=== PATIENT | female | born 1945 | race Caucasian/White ===

== ENCOUNTER 2017-10-17 13:45 | Observation (INO) ==
--- NOTE | 2017-10-17 14:42 | Emergency Department Note ---
Disposition Clinical Impression: Intractable pain, Mass of gallbladder, Cholelithiases, Liver mass, Lymph node enlargement Disposition: Admitted As Inpatient Condition: Fair General Adult HPI - General Chief complaint: ED Abdominal Pain Stated complaint: "abd pain, possible kidney stone" Time Seen by Provider: 10/17/17 14:31 Source: patient Limitations: no limitations - History of Present Illness Pain Scale: 8 - Related Data Home Medications Medication Instructions Recorded Confirmed ALPRAZolam [Xanax 0.5 MG Tablet] 0.5 mg PO TID 11/01/15 10/17/17 Citalopram [CeleXA] 60 mg PO HS 11/01/15 10/17/17 Aspirin Enteric Coated [Aspirin EC] 81 mg PO DAILY 10/17/17 10/17/17 Lisinopril [Zestril] 10 mg PO BID 10/17/17 10/17/17 [place]-3/Dha/Epa/Fish Oil [Fish Oil 1 cap PO DAILY 10/17/17 10/17/17 1,000 mg Softgel] Omeprazole [PriLOSEC] 20 mg PO DAILY 10/17/17 10/17/17 Allergies Allergy/AdvReac Type Severity Reaction Status Date / Time cephalexin Allergy Hives Verified 11/01/15 16:49 Penicillins Allergy Hives Verified 11/01/15 16:49 Sulfa (Sulfonamide Allergy Hives Verified 11/01/15 16:49 Antibiotics) Past Medical History - Past Medical History Medical history: Reports: hyperlipidemia, hypertension Surgical history: Reports: hysterectomy, other (tonsillectomy) Psychiatric history: Reports: anxiety, depression, PTSD - Social History Smoking Status: Never smoker Smokeless Tobacco Status: No Alcohol use: Reports: none Drug use: Reports: none Physical Exam - General Limitations: no limitations General appearance: alert, in no apparent distress Course Vital Signs Temperature 97.6 F 10/17/17 13:56 Pulse Rate 82 10/17/17 13:56 Respiratory Rate 18 10/17/17 13:56 Blood Pressure 136/80 10/17/17 13:56 O2 Sat by Pulse Oximetry 98 10/17/17 13:56 Temperature 98.8 F 10/18/17 10:38 Pulse Rate 82 10/18/17 10:38 Respiratory Rate 16 10/18/17 10:38 Blood Pressure 121/70 10/18/17 10:38 O2 Sat by Pulse Oximetry 93 10/18/17 10:38 Oxygen Delivery Oxygen Delivery Room Air Medical Decision Making - Lab Data Result diagrams: 10/18/17 06:58 10/18/17 06:58 Lab Results 10/17/17 10/17/17 Range/Units 14:43 14:43 WBC 10.2 (4.3-11.1) K/mcL RBC 4.46 (3.82-4.97) M/mcL Hgb 12.5 (11.5-15.4) g/dL Hct 37.6 (35.3-44.9) % MCV 84.3 (83.0-100.0) fL MCH 28.0 (28.0-33.3) pg MCHC 33.2 (31.6-35.5) g/dL RDW 13.3 (11.5-14.5) % Plt Count 286 (140-400) K/mcL MPV 9.6 (9.4-12.4) fL Immature Gran % 0.3 (0-4) % Seg Neutrophils % 62.7 % Lymphocytes % 25.3 % Monocytes % 9.7 % Eosinophils % 1.4 % Basophils % 0.6 % Neutrophils # 6.4 (1.6-8.9) K/mcL Lymphocytes # 2.6 (0.6-4.6) K/mcL Monocytes # 1.0 (0.0-1.3) K/mcL Eosinophils # 0.1 (0.0-0.6) K/mcL Basophils # 0.1 (0.0-0.2) K/mcL Sodium 137 (136-145) mEq/L Potassium 3.3 L (3.5-5.1) mEq/L Chloride 104 (98-107) mEq/L Carbon Dioxide 25 (23-29) mEq/L BUN 14 (8-23) mg/dL Creatinine 0.81 (0.60-1.20) mg/dL Est GFR ( Amer) > 60 (> 60) Est GFR (Non-Af Amer) > 60 (> 60) BUN/Creatinine Ratio 17 (6-26) Glucose 108 H (70-105) mg/dL Calculated Osmolality 285 (280-300) Calcium 9.2 (8.6-10.3) mg/dL Total Bilirubin 0.4 (0.3-1.0) mg/dL Direct Bilirubin 0.2 (0.0-0.2) mg/dL Indirect Bilirubin 0.2 (0.0-1.2) mg/dL AST 15 (13-39) Units/L ALT 20 (7-52) Units/L Alkaline Phosphatase 133 H (34-104) Units/L Serum Total Protein 6.5 (6.4-8.9) g/dL Albumin 3.8 (3.5-5.7) g/dL Globulin 2.7 (2.4-3.5) g/dL Albumin/Globulin Ratio 1.4 (1.1-2.2) Amylase 33 (29-103) Units/L Lipase 48 (11-82) Units/L Attestation Statement - Attestation Attestation: I examined this patient and my medical decision-making was reviewed with the Resident Physician. I agree with the documented findings, disposition and treatment plan as described except to the extent set forth below. [id number] time provided Patient was able to ambulate to the bathroom. She appears in no acute distress on exam. Family at bedside. She was evaluated in conjunction with the resident physician Dr. Jones. c/o central "stabbing" abd pain x 3 weeks
[2017-10-17 14:53] LABS: Basophils # 0.1 K/mcL (0.0-0.2); Basophils % 0.6 %; Eosinophils # 0.1 K/mcL (0.0-0.6); Eosinophils % 1.4 %; Hematocrit 37.6 % (35.3-44.9); Hemoglobin 12.5 g/dL (11.5-15.4); Immature Granulocytes % 0.3 % (0-4); Lymphocytes # 2.6 K/mcL (0.6-4.6); Lymphocytes % 25.3 %; Mean Corpuscular HGB Conc 33.2 g/dL (31.6-35.5); Mean Corpuscular Volume 84.3 fL (83.0-100.0); Mean Platelet Volume 9.6 fL (9.4-12.4); Monocytes % 9.7 %; Neutrophils # 6.4 K/mcL (1.6-8.9); Platelet Count 286 K/mcL (140-400); Red Blood Count 4.46 M/mcL (3.82-4.97); Red Cell Distribution Width 13.3 % (11.5-14.5); Segmented Neutrophils % 62.7 %
--- NOTE | 2017-10-17 14:53 | Emergency Department Note ---
Disposition Clinical Impression: Intractable pain, Mass of gallbladder, Liver mass, Lymph node enlargement Cholelithiases Qualifiers: Cholelithiasis location: gallbladder Cholecystitis presence: without cholecystitis Biliary obstruction: without biliary obstruction Qualified Code(s) : K80.20 - Calculus of gallbladder without cholecystitis without obstruction Disposition: Admitted As Inpatient Condition: Fair Forms: ED Satisfaction Letter, Work/School Release Time of Disposition: 16:39 Abdominal Pain HPI - General Chief Complaint: ED Abdominal Pain Stated Complaint: "abd pain, possible kidney stone" Time Seen by Provider: 10/17/17 14:31 Source: patient Nursing Notes Reviewed: Yes Vital Signs Reviewed: Yes - History of Present Illness HPI Narrative: 72-year-old female presents from home with daughter bedside for evaluation of abdominal pain. Onset approximately 3 weeks ago. Intermittent. Begins as suprapubic/midline sharp stabbing which radiates bilaterally to the flanks. Asymptomatic between episodes. Abrupt onset and lasts approximately 30 seconds before abrupt resolution. She has been seen and evaluated by her primary care physician and was prescribed a low-dose muscle relaxant which does help her symptoms. Patient does not like to take this medication because it puts her to sleep. Abdominal surgical history: Total hysterectomy with bilateral oophorectomy PMH: Hyperlipidemia, hypertension, history of TIA ROS: Positive: As above Negative: Saddle anesthesia, pain/burning/urgency/hesitancy with urination, hematochezia, melena, midline back pain, trauma, fever, chills, nausea, vomiting , chest pain, palpitations, dyspnea, diaphoresis Pain Scale: 8 - Related Data Home Medications Medication Instructions Recorded Confirmed ALPRAZolam [Xanax 0.5 MG Tablet] 0.5 mg PO BID 11/01/15 11/01/15 Citalopram [CeleXA] 60 mg PO HS 11/01/15 11/01/15 Aspirin Enteric Coated [Aspirin EC] 81 mg PO DAILY 10/17/17 10/17/17 Lisinopril [Zestril] 10 mg PO BID 10/17/17 10/17/17 [place]-3/Dha/Epa/Fish Oil [Fish Oil 1 cap PO DAILY 10/17/17 10/17/17 1,000 mg Softgel] Omeprazole [PriLOSEC] 20 mg PO DAILY 10/17/17 10/17/17 Allergies Allergy/AdvReac Type Severity Reaction Status Date / Time cephalexin Allergy Hives Verified 11/01/15 16:49 Penicillins Allergy Hives Verified 11/01/15 16:49 Sulfa (Sulfonamide Allergy Hives Verified 11/01/15 16:49 Antibiotics) All systems ED: reviewed and negative except as stated. Review of Systems: As Per HPI Abdominal Pain PMH - Past Medical History Medical history: Reports: hyperlipidemia, hypertension Female Surgical History: Reports: hysterectomy Psychiatric history: Reports: anxiety, depression, PTSD - Social History Smoking status: Never smoker Alcohol use: Reports: none Drug use: Reports: none Physical Exam Vital Signs Reviewed General: Patient is alert, oriented, and in no acute distress. Head: atraumatic, normocephalic Eye: normal appearance, no scleral icterus, no conjunctival injection ENT: mucous membranes moist, normal external ear exam Neck: normal inspection, trachea midline, full ROM Chest: normal inspection, symmetric chest rise Respiratory: Good respiratory effort. Bilateral breath sounds are clear without wheezing, crackles, or rhonchi. Cardiovascular: Regular rate and rhythm. No clicks, rubs, gallops, or murmors. Normal heart sounds. Abdomen: Bowel sounds present normoactive x-4 quadrants. Abdomen is soft, nondistended, and diffusely nontender. No guarding. Mild rebound. No organomegaly noted. Musculoskeletal: Spontaneously moving all extremities. Skin: warm, dry, intact. Neuro: Alert and oriented x4. Sensation light touch intact. Psych: Patient's affect is appropriate for situation. - General Limitations: no limitations General appearance: alert, in no apparent distress Course Course Narrative: During my valuation, patient had an episode of her abdominal cramping. She was wincing, appearing comfortable, moaning. During her symptoms, I palpated her abdomen did not appreciate any musculoskeletal cramping. Serum hematology is unremarkable. Serum chemistries unremarkable except for elevated alkaline phosphatase 133. CT abdomen pelvis shows multiple concerning findings per radiology read. I discussed the above with the patient and her daughter. We discussed in detail the radiology findings and my concern. We also discussed my inability to control the patient's pain without using IV analgesics. They are agreeable to admission for continued pain management. I also discussed the patient with the on-call oncologist. I discussed the concerning CT findings and they are agreeable to consult with admission to the hospitalist. I discussed the patient with the admitting hospitalist, Dr. Burk, who agrees to accept the patient for intractable pain. Abdomen/Pelvis CT 10/17/17 14:43 IMPRESSION: 1. Complete filling of the gallbladder lumen with gallstones. A mass arises from the posterior gallbladder wall primarily near the fundus, most likely representing adenocarcinoma. The mass abuts the gallbladder fossa, and direct invasion of the liver is not excluded. 2. Hepatic metastases measuring up to 4.0 cm x 3.5 cm. 3. Peritoneal carcinomatosis, including extensive omental caking. 4. Pericholecystic stranding could be related to superimposed acute cholecystitis. However, the appearance is felt more likely related to omental carcinomatosis. 5. Mildly enlarged portocaval lymph node, potentially metastatic. 6. Trace bilateral pleural effusions. Pleural metastatic involvement is not excluded. D/ / Yan Bui MD / Yan Bui MD Interpreting Provider: Yan Bui MD Vital Signs Temperature 97.6 F 10/17/17 13:56 Pulse Rate 82 10/17/17 13:56 Respiratory Rate 18 10/17/17 13:56 Blood Pressure 136/80 10/17/17 13:56 O2 Sat by Pulse Oximetry 98 10/17/17 13:56 Temperature 97.6 F 10/17/17 13:56 Pulse Rate 72 10/17/17 15:08 Respiratory Rate 18 10/17/17 15:08 Blood Pressure 149/80 10/17/17 15:08 O2 Sat by Pulse Oximetry 97 10/17/17 15:08 Oxygen Delivery Oxygen Delivery Room Air Abdominal Pain - Lab Data Result diagrams: 10/17/17 14:43 10/17/17 14:43 Lab Results 10/17/17 10/17/17 Range/Units 14:43 14:43 WBC 10.2 (4.3-11.1) K/mcL RBC 4.46 (3.82-4.97) M/mcL Hgb 12.5 (11.5-15.4) g/dL Hct 37.6 (35.3-44.9) % MCV 84.3 (83.0-100.0) fL MCH 28.0 (28.0-33.3) pg MCHC 33.2 (31.6-35.5) g/dL RDW 13.3 (11.5-14.5) % Plt Count 286 (140-400) K/mcL MPV 9.6 (9.4-12.4) fL Immature Gran % 0.3 (0-4) % Seg Neutrophils % 62.7 % Lymphocytes % 25.3 % Monocytes % 9.7 % Eosinophils % 1.4 % Basophils % 0.6 % Neutrophils # 6.4 (1.6-8.9) K/mcL Lymphocytes # 2.6 (0.6-4.6) K/mcL Monocytes # 1.0 (0.0-1.3) K/mcL Eosinophils # 0.1 (0.0-0.6) K/mcL Basophils # 0.1 (0.0-0.2) K/mcL Sodium 137 (136-145) mEq/L Potassium 3.3 L (3.5-5.1) mEq/L Chloride 104 (98-107) mEq/L Carbon Dioxide 25 (23-29) mEq/L BUN 14 (8-23) mg/dL Creatinine 0.81 (0.60-1.20) mg/dL Est GFR ( Amer) > 60 (> 60) Est GFR (Non-Af Amer) > 60 (> 60) BUN/Creatinine Ratio 17 (6-26) Glucose 108 H (70-105) mg/dL Calculated Osmolality 285 (280-300) Calcium 9.2 (8.6-10.3) mg/dL Total Bilirubin 0.4 (0.3-1.0) mg/dL Direct Bilirubin 0.2 (0.0-0.2) mg/dL Indirect Bilirubin 0.2 (0.0-1.2) mg/dL AST 15 (13-39) Units/L ALT 20 (7-52) Units/L Alkaline Phosphatase 133 H (34-104) Units/L Serum Total Protein 6.5 (6.4-8.9) g/dL Albumin 3.8 (3.5-5.7) g/dL Globulin 2.7 (2.4-3.5) g/dL Albumin/Globulin Ratio 1.4 (1.1-2.2) Amylase 33 (29-103) Units/L Lipase 48 (11-82) Units/L
[2017-10-17 15:13] LABS: Alanine Aminotransferase 20 Units/L (7-52); Albumin 3.8 g/dL (3.5-5.7); Albumin/Globulin Ratio 1.4 (1.1-2.2); Alkaline Phosphatase 133 Units/L (34-104); Amylase 33 Units/L (29-103); Aspartate Amino Transferase 15 Units/L (13-39); BUN/Creatinine Ratio 17 (6-26); Bilirubin,Direct 0.2 mg/dL (0.0-0.2); Bilirubin,Indirect 0.2 mg/dL (0.0-1.2); Bilirubin,Total 0.4 mg/dL (0.3-1.0); Blood Urea Nitrogen 14 mg/dL (8-23); Calcium 9.2 mg/dL (8.6-10.3); Carbon Dioxide 25 mEq/L (23-29); Chloride 104 mEq/L (98-107); Globulin 2.7 g/dL (2.4-3.5); Glucose 108 mg/dL (70-105); Lipase 48 Units/L (11-82); Osmolality,Calculated 285 (280-300); Potassium 3.3 mEq/L (3.5-5.1); Sodium 137 mEq/L (136-145); Total Protein 6.5 g/dL (6.4-8.9); eGFR For African Americans > 60 (> 60); eGFR For Non-African Americans > 60 (> 60)
[2017-10-17] MEDS ORDERED: *HR* FentaNYL (PF) 100 MCG/2 ML VIAL IVP ONE (15:32)
[2017-10-17] MEDS ORDERED: *HR* LORazepam 2 MG/ML VIAL IVP ONE (15:47)
[2017-10-17] MEDS ORDERED: Naloxone 0.4 MG/ML INJ IVP PRN (18:23)
[2017-10-17] MEDS ORDERED: *HR* HYDROcodone/Acet 5/325 mg TABLET PO PRN (18:25)
[2017-10-17] MEDS ORDERED: Acetaminophen 325 MG TABLET PO PRN (18:25)
[2017-10-17] MEDS ORDERED: *HR* OxyCODONE Immed Rel 5 MG TABLET PO PRN (18:25)
[2017-10-17] MEDS ORDERED: *HR* Promethazine 25 MG/ML VIAL IVP PRN (18:34)
[2017-10-17] MEDS ORDERED: tiZANidine 4 MG TABLET PO PRN (18:40)
--- NOTE | 2017-10-17 18:45 | Internal Med History&Physical ---
<HanhChristophe Ordonez - Last Filed: 10/17/17 19:28> Date of Encounter: 10/17/17 Time of Encounter: 17:30 Internal Medicine - H&P: HPI Chief complaint: Abdominal pain Admitted From: Emergency Dept Plans for Post Hospital Care: Home History of present illness: Ms. Varma is a 72 year old femalew/PMH of HLD, HTN, anxiety, depression, and PTSD presents from the ED w/CC of abdominal pain for the past 3 weeks that has become progressively worse in the past several days. Pt. reports pain is sharp and stabbing in the suprapubic area w/radiation to her bilateral flanks. Pt. reports no alleviating or aggravating factors and states the pain comes w/o warning and lasts 30-60 seconds and then slowly resolves. Pt. denies N/V and states she has been able to eat and drink w/o discomfort. Pt. denies recent illness, fever, chills, nausea, vomiting, changes in vision, headache, cough, chest congestion, chest pain, shortness of breath, unusual bleeding, diarrhea, constipation, numbness, tingling, dizziness, lightheadedness, pre-syncope, or syncope. Past Med Surg Social Fam HX - Past Medical History Source: patient, old records reviewed, obtained from family Medical history: hyperlipidemia, hypertension Psychiatric history: anxiety, depression, PTSD - Past Surgical History Surgical History: hysterectomy (Total), other - Social History Smoking Status: Never smoker Smokeless Tobacco Status: No Alcohol use: none Drug use: none Current living situation: Home, With Family Activity Level: Independent ambulation Recent Out of Country Travel Within the Last 8 Weeks: No Exposure or Possible Exposure to Illness During Travel: No - Family History Father Race: Family Member Ethnicity: Non- Living Status: Age at : 60 Cause of : CVA Hx Family Cardiac Disorders: Yes (CVA) Hx Family Cancer: Yes (Pancreatic) Hx Family Neurologic Disorders: Yes (CVA) Sister Race: Family Member Ethnicity: Non- Living Status: Still Living Hx Family Cardiac Disorders: Yes (DC) Mother Race: Family Member Ethnicity: Non- Living Status: Still Living Hx Family Cardiac Disorders: Yes (Atrial fibrillation) Hx Family HEENT Disorders: Yes (Macular degeneration) Brother Race: Family Member Ethnicity: Non- Living Status: Still Living Hx Family Cardiac Disorders: Yes (Pig valve) Internal Medicine - H&P: Meds ALPRAZolam [Xanax 0.5 MG Tablet] 0.5 mg PO TID 11/01/15 [History] Citalopram [CeleXA] 60 mg PO HS 11/01/15 [History] Aspirin Enteric Coated [Aspirin EC] 81 mg PO DAILY 10/17/17 [History] Lisinopril [Zestril] 10 mg PO BID 10/17/17 [History] [place]-3/Dha/Epa/Fish Oil [Fish Oil 1,000 mg Softgel] 1 cap PO DAILY 10/17/17 [ History] Omeprazole [PriLOSEC] 20 mg PO DAILY 10/17/17 [History] 3 Allergy/AdvReac Type Severity Reaction Status Date / Time cephalexin Allergy Hives Verified 11/01/15 16:49 Penicillins Allergy Hives Verified 11/01/15 16:49 Sulfa (Sulfonamide Allergy Hives Verified 11/01/15 16:49 Antibiotics) All Systems PM: A 10-system review of systems was performed and is negative for pertinent findings except as documented above in the HPI. - Constitutional Constitutional: no chills, no fever(s), no night sweats - EENT Eyes: no change in vision, no discharge, no pain, no photophobia Ears: no ear discharge, no ear pain, no tinnitus Nose, mouth and throat: no dysphagia, no nasal discharge, no neck pain, no sore throat - Breasts Breasts: as per HPI - Cardiovascular Cardiovascular ROS IM: no chest pain, no diaphoresis, no dyspnea, no lightheadedness, no palpitations, no syncope - Respiratory Respiratory: no cough, no dyspnea, no wheezing, no excessive phlegm production - Gastrointestinal Gastrointestinal: as per HPI, abdominal pain (Located in suprapubic area w/ radiation to flanks), heartburn, no diarrhea, no hematemesis, no hematochezia, no melena, no nausea, no vomiting - Genitourinary Genitourinary: as per HPI, flank pain, no change in urinary stream, no dysuria, no hematuria Menstruation: as per HPI, post hysterectomy (Total ) - Musculoskeletal Musculoskeletal ROS IM: as per HPI, muscle cramps (Bilateral LEs), no numbness, no tingling - Integumentary Integumentary IM: no rash, no unusual bruising - Neurological Neurological ROS: no confusion, no convulsions, no focal weakness, no numbness, no tingling, no tremor(s) - Psychiatric Psychiatric: as per HPI, anxiety, depression, other (PTSD) - Endocrine Endocrine IM: as per HPI - Hematologic/Lymphatic Hematologic/Lymphatic: no easy bruising - Allergic/Immunologic Allergic/Immunologic: as per HPI - Constitutional Vitals: Temp Pulse Resp BP Pulse Ox 98.1 F 74 15 163/80 96 10/17/17 17:04 10/17/17 17:04 10/17/17 17:04 10/17/17 17:04 10/17/17 17:04 General appearance: Present: cooperative, mild distress (Abdominal pain), A&O X 3, pleasant, answers questions appropriately - Head Head exam: Present: atraumatic, normocephalic - Eye Eye exam: Present: PERRL, conjuntiva pink, sclera anicteric Pupils: Present: PERRL - ENT ENT exam: Present: normal exam - Neck Neck exam general surgery: Present: normal inspection, supple, trachea midline. Absent: lymphadenopathy - Respiratory Respiratory exam: Present: CTAB. Absent: accessory muscle use, rales, rhonchi, wheezes - Cardiovascular Cardiovascular exam: Present: RRR, +S1, +S2. Absent: diastolic murmur, gallop, rubs, systolic murmur - GI/Abdominal GI/Abdominal exam: Present: normal bowel sounds, soft, no peritoneal signs. Absent: distended, tenderness - Rectal Rectal exam: Present: deferred - Additional comments: exam deferred. - Extremities Exam Extremities exam: Present: warm, radial pulses palpable and symmetrical. Absent : calf tenderness, cyanotic, pedal edema - Back Exam Back exam: Present: normal inspection - Neurological Exam Neurological exam: Present: alert, CN II-XII intact, oriented X3, no focal deficits. Absent: pronater drift, facial droop, speech deficit - Psychiatric Psychiatric exam: Present: anxious - Skin Skin exam: Present: dry, intact Internal Med - H&P Results - Labs CBC & Chem 7: 10/17/17 14:43 10/17/17 14:43 - Diagnostic Studies CT scan - abdomen Additional comments: Impressions Abdomen/Pelvis CT 10/17/17 14:43 IMPRESSION: 1. Complete filling of the gallbladder lumen with gallstones. A mass arises from the posterior gallbladder wall primarily near the fundus, most likely representing adenocarcinoma. The mass abuts the gallbladder fossa, and direct invasion of the liver is not excluded. 2. Hepatic metastases measuring up to 4.0 cm x 3.5 cm. 3. Peritoneal carcinomatosis, including extensive omental caking. 4. Pericholecystic stranding could be related to superimposed acute cholecystitis. However, the appearance is felt more likely related to omental carcinomatosis. 5. Mildly enlarged portocaval lymph node, potentially metastatic. 6. Trace bilateral pleural effusions. Pleural metastatic involvement is not excluded. D/ / Yan Bui MD / Yan Bui MD Interpreting Provider: Yan Bui MD - Assessment and plan (1) Intractable pain Current Visit: Yes Status: Acute Assessment and plan: Acute on chronic intractable abdominal pain for the past three weeks that has become progressively worse. Pt. reports pain in the suprapubic area w/radiation to bilateral flanks. CT of the abdomen/pelvis shows complete filling of the gallbladder lumen with gallstones. I mass arises from the posterior gallbladder wall primarily near the fundus, most likely representing adenocarcinoma. The mass abuts the gallbladder fossa and direct invasion of the liver is not excluded. Hepatic metastases measuring up to 4.0 cm 3.5 cm. Peritoneal carcinomatosis, including extensive omental caking.. Cholecystic stranding could be related to superimposed acute cholecystitis. However the appearance is felt more likely related to omental carcinomatosis. Mildly enlarged portacaval lymph node, potentially metastatic. Trace bilateral pleural effusions, pleural metastatic involvement is not excluded. Oncology consult ordered in ED and I appreciate the consult. Will let Oncology see pt. before placing Surgery consult regarding cholelithiases. IVP phenergan 12.5 mg Q6HR PRN for N/V. Clear liquid diet. NPO @ midnight d/t possible intervention. Stair-step pain medications for pain mgmt. Pt. discussed w/Dr. Rubi who agrees w/plan of care. Pt. is high risk for further morbidity and complications d/t evidence of new masses of liver and gallbladder, evidence of metastases on CT, complete filling of gallbladder lumen w/stones, intractable pain, and risk factors. Observation. (2) Mass of gallbladder Current Visit: Yes Status: Acute Assessment and plan: Acute mass of the gallbladder. CT of the abdomen/pelvis today shows complete filling of the gallbladder lumen with gallstones. A mass arises from the posterior gallbladder wall primarily near the fundus, most likely representing adenocarcinoma. The mass abuts the gallbladder fossa and direct invasion of the liver is not excluded. Pericholecystic stranding could be related to superimposed acute cholecystitis. However the appearance is felt more likely related to omental carcinomatosis. Oncology consult ordered in ED. Stair-step pain medication for pain mgmt. (3) Liver mass Current Visit: Yes Status: Acute Assessment and plan: Acute liver mass. CT of the abdomen/pelvis shows hepatic metastases measuring up to 4.0 cm x 3.5 cm. Mildly enlarged portacaval lymph node, potentially metastatic. Oncology consult ordered in ED and I appreciate the consult. Stair- step pain medications for pain mgmt. (4) Cholelithiases Current Visit: Yes Status: Acute Assessment and plan: Acute cholelithiases. CT of the abdomen/pelvis shows complete filling of the gallbladder lumen with gallstones. A mass arises from the posterior gallbladder wall primarily near the fundus, most likely representing adenocarcinoma. The mass abuts the gallbladder fossa and direct invasion of the liver is not excluded. Pericholecystic stranding could be related to superimposed acute cholecystitis. However the appearance is felt more likely related to omental carcinomatosis. Oncology consult ordered in the ED and I appreciate the consult. Will let Oncology see pt. before placing Surgery consult regarding cholelithiases. Qualifiers: Cholelithiasis location: gallbladder Cholecystitis presence: without cholecystitis Biliary obstruction: without biliary obstruction Qualified Code(s): K80.20 - Calculus of gallbladder without cholecystitis without obstruction (5) Bilateral pleural effusion Current Visit: Yes Status: Acute Assessment and plan: Acute trace bilateral pleural effusions on CT of the abdomen/pelvis. Pleural metastatic involvement is not excluded. Oncology consult ordered. (6) Bilateral leg cramps Current Visit: Yes Status: Acute Assessment and plan: Acute bilateral leg cramps. Pt. reports leg cramps over the past 24 hours. Magnesium level ordered. Pt. currently hypokalemic w/potassium of 3.3 on admission. 40 mEq PO potassium ordered once. Potassium level ordered at 04:00. Zanaflex 2 mg PO TID ordered. (7) HTN (hypertension) Current Visit: Yes Status: Chronic Assessment and plan: Hx of chronic HTN. Monitor pt. and VS. Continue pts. Lisinopril. Qualifiers: Hypertension type: essential hypertension Qualified Code(s): I10 - Essential (primary) hypertension (8) HLD (hyperlipidemia) Current Visit: Yes Status: Chronic Assessment and plan: Hx of chronic HLD. Lipid panel in a.m. labs. Pt. reports taking fish oil as statin. Qualifiers: Hyperlipidemia type: pure hypercholesterolemia Qualified Code(s): E78.00 - Pure hypercholesterolemia, unspecified; E78.0 - Pure hypercholesterolemia (9) DVT prophylaxis Current Visit: Yes Status: Acute Assessment and plan: Bilateral SCDs on LEs for DVT prophylaxis. (10) Hypokalemia Current Visit: Yes Status: Acute Assessment and plan: Acute hypokalemia w/potassium level of 3.3 on admission. 40 mEq potassium PO ordered once. Potassium level ordered at 04:00. Continuous cardiac telemetry. Monitor pt. and f/u labs. - Time Spent With Patient Total time spent is greater than 50% in coordination of care (as documented) at patient's floor/unit and/or counseling patient: Greater than 35 minutes <Hope Rubi - Last Filed: 10/18/17 05:50> Date of Encounter: 10/18/17 Internal Medicine - H&P: HPI History of present illness: Ms. Varma is a 72 year old female All Systems PM: A 10-system review of systems was performed and is negative for pertinent findings except as documented above in the HPI. - Constitutional Vitals: Temp Pulse Resp BP Pulse Ox 98.9 F 86 16 133/79 92 10/18/17 04:15 10/18/17 04:15 10/18/17 04:15 10/18/17 04:15 10/18/17 04:15 Internal Med - H&P Results - Labs CBC & Chem 7: 10/17/17 14:43 10/17/17 14:43 - Attending Attestation I have seen and examined this patient independently. I have discussed with [employer] Mr Idzakovich regarding the management plan. Agree with the documentation. - Assessment and plan (1) DVT prophylaxis Current Visit: Yes Status: Acute (2) Intractable pain Current Visit: Yes Status: Acute (3) Mass of gallbladder Current Visit: Yes Status: Acute (4) Cholelithiases Current Visit: Yes Status: Acute Qualifiers: Cholelithiasis location: gallbladder Cholecystitis presence: without cholecystitis Biliary obstruction: without biliary obstruction Qualified Code(s): K80.20 - Calculus of gallbladder without cholecystitis without obstruction (5) Liver mass Current Visit: Yes Status: Acute (6) HTN (hypertension) Current Visit: Yes Status: Chronic Qualifiers: Hypertension type: essential hypertension Qualified Code(s): I10 - Essential (primary) hypertension (7) HLD (hyperlipidemia) Current Visit: Yes Status: Chronic Qualifiers: Hyperlipidemia type: pure hypercholesterolemia Qualified Code(s): E78.00 - Pure hypercholesterolemia, unspecified; E78.0 - Pure hypercholesterolemia (8) Bilateral leg cramps Current Visit: Yes Status: Acute (9) Bilateral pleural effusion Current Visit: Yes Status: Acute (10) Hypokalemia Current Visit: Yes Status: Acute - Time Spent With Patient Total time spent is greater than 50% in coordination of care (as documented) at patient's floor/unit and/or counseling patient:
[2017-10-17] MEDS: ALPRAZolam 0.5 MG TABLET PO SCH (21:48)
[2017-10-18] MEDS: *HR* OxyCODONE Immed Rel 5 MG TABLET PO PRN ×3 (00:21→13:30)
[2017-10-18] MEDS: *HR* Heparin 5,000 UNIT/ML VIAL SQ SCH ×2 (06:33→17:20)
[2017-10-18 07:14] LABS: Basophils # 0.1 K/mcL (0.0-0.2); Basophils % 0.5 %; Eosinophils # 0.2 K/mcL (0.0-0.6); Eosinophils % 1.7 %; Hematocrit 38.2 % (35.3-44.9); Hemoglobin 12.6 g/dL (11.5-15.4); Immature Granulocytes % 0.6 % (0-4); Lymphocytes # 2.6 K/mcL (0.6-4.6); Lymphocytes % 26.8 %; Mean Corpuscular Hemoglobin 28.6 pg (28.0-33.3); Mean Corpuscular Volume 86.6 fL (83.0-100.0); Mean Platelet Volume 9.6 fL (9.4-12.4); Monocytes % 10.5 %; Neutrophils # 5.7 K/mcL (1.6-8.9); Platelet Count 274 K/mcL (140-400); Red Blood Count 4.41 M/mcL (3.82-4.97); Red Cell Distribution Width 13.4 % (11.5-14.5); Segmented Neutrophils % 59.9 %
[2017-10-18 07:33] LABS: Alanine Aminotransferase 19 Units/L (7-52); Albumin 3.6 g/dL (3.5-5.7); Albumin/Globulin Ratio 1.3 (1.1-2.2); Alkaline Phosphatase 126 Units/L (34-104); Aspartate Amino Transferase 15 Units/L (13-39); BUN/Creatinine Ratio 18 (6-26); Bilirubin,Total 0.5 mg/dL (0.3-1.0); Blood Urea Nitrogen 14 mg/dL (8-23); Calcium 9.1 mg/dL (8.6-10.3); Carbon Dioxide 24 mEq/L (23-29); Chloride 104 mEq/L (98-107); Chol/HDL Ratio 2.6 (0-4.9); Cholesterol 127 mg/dL (< 200); Globulin 2.7 g/dL (2.4-3.5); Glucose 104 mg/dL (70-105); HDL Cholesterol 48 mg/dL (40-59); LDL Cholesterol,Calculated 53 mg/dL (0-99); Magnesium 2.1 mg/dL (1.6-2.6); Osmolality,Calculated 283 (280-300); Phosphorous 3.8 mg/dL (2.7-4.5); Potassium 3.9 mEq/L (3.5-5.1); Sodium 136 mEq/L (136-145); Total Protein 6.3 g/dL (6.4-8.9); Triglycerides 128 mg/dL (< 150); eGFR For African Americans > 60 (> 60); eGFR For Non-African Americans > 60 (> 60)
[2017-10-18] MEDS: Aspirin Enteric Coated 81 MG Tablet PO SCH (07:35)
[2017-10-18] MEDS: (Omega-3/Dha/Epa/Fish Oil [Fish Oil 1,000 Mg Softgel]) PO SCH (07:40)
[2017-10-18] MEDS: ALPRAZolam 0.5 MG TABLET PO SCH ×3 (07:40→20:29)
[2017-10-18 09:38] LABS: Estimated Average Glucose 123 mg/dl; Hemoglobin A1C 5.9 %
[2017-10-18] MEDS: 0.9 % Sodium Chloride w KCl 20 MEQ/1,000 ML MLS IVC SCH ×2 (10:15→23:58)
--- NOTE | 2017-10-18 17:12 | Oncology Inp Consult Note ---
Date of Encounter: 10/19/17 Time of Encounter: 20:30 Assessment and Plan (1) Cholelithiases Status: Acute Assessment and plan: She is symptomatic with RUQ tenderness. Recommend surgical consult Qualifiers: Cholelithiasis location: gallbladder Cholecystitis presence: without cholecystitis Biliary obstruction: without biliary obstruction Qualified Code(s): K80.20 - Calculus of gallbladder without cholecystitis without obstruction (2) Liver mass Status: Acute Assessment and plan: Multiple liver metastases. Largest on the right liver is accessible by CT guided biopsy. Reviewed CT scan pictures with patient. She is interested in surgical excision of Gal-bladder. If she is a surgical candidate then liver and/or peritoneal biopsy can be done during cholecystectomy. Otherwise recommend CT guided biopsy of Liver Per surgical recommendation IR guided omental biopsy obtained Also CT chest with IV contrast to complete staging - Data of Consult Requesting Physician: Kirill Maldonado Primary Care Provider: Maura Morales - Consult Narrative Reason for consult: Possible metastatic carcinoma History of present illness: Ms. Varma is a 72 year old female admitted with about 2-3 days of abdominal pain. Mainly RUQ. No major N/V She has symptoms of cholecystitis and numerous gallstones CT Abdomen and pelvis on 10/17/17 1. Complete filling of the gallbladder lumen with gallstones. A mass arises from the posterior gallbladder wall primarily near the fundus, most likely representing adenocarcinoma. The mass abuts the gallbladder fossa, and direct invasion of the liver is not excluded. 2. Hepatic metastases measuring up to 4.0 cm x 3.5 cm. 3. Peritoneal carcinomatosis, including extensive omental caking. 4. Pericholecystic stranding could be related to superimposed acute cholecystitis. However, the appearance is felt more likely related to omental carcinomatosis. 5. Mildly enlarged portocaval lymph node, potentially metastatic. Echo 04/20/17 EF 60-65% Past Med Surg Social Fam HX - Past Medical History Medical history: hyperlipidemia, hypertension Psychiatric history: anxiety, depression, PTSD - Past Surgical History Surgical History: hysterectomy, other (tonsillectomy) - Social History Smoking Status: Never smoker Smokeless Tobacco Status: No Alcohol use: none Drug use: none - Family History Brother Race: Family Member Ethnicity: Non- Living Status: Still Living Hx Family Cardiac Disorders: Yes (Pig valve) Father Race: Family Member Ethnicity: Non- Living Status: Age at : 60 Cause of : CVA Hx Family Cardiac Disorders: Yes (CVA) Hx Family Cancer: Yes (Pancreatic) Hx Family Neurologic Disorders: Yes (CVA) Sister Race: Family Member Ethnicity: Non- Living Status: Still Living Hx Family Cardiac Disorders: Yes (ND) Mother Race: Family Member Ethnicity: Non- Living Status: Still Living Hx Family Cardiac Disorders: Yes (Atrial fibrillation) Hx Family HEENT Disorders: Yes (Macular degeneration) Medications and Allergies ALPRAZolam [Xanax 0.5 MG Tablet] 0.5 mg PO TID 11/01/15 [History] Citalopram [CeleXA] 60 mg PO HS 11/01/15 [History] Aspirin Enteric Coated [Aspirin EC] 81 mg PO DAILY 10/17/17 [History] Lisinopril [Zestril] 10 mg PO BID 10/17/17 [History] [place]-3/Dha/Epa/Fish Oil [Fish Oil 1,000 mg Softgel] 1 cap PO DAILY 10/17/17 [ History] Omeprazole [PriLOSEC] 20 mg PO DAILY 10/17/17 [History] 3 Allergy/AdvReac Type Severity Reaction Status Date / Time cephalexin Allergy Hives Verified 11/01/15 16:49 Penicillins Allergy Hives Verified 11/01/15 16:49 Sulfa (Sulfonamide Allergy Hives Verified 11/01/15 16:49 Antibiotics) Oncology - Exam - Constitutional Vitals: Temp Pulse Resp BP Pulse Ox 98.2 F 79 16 135/76 91 10/18/17 15:17 10/18/17 15:17 10/18/17 15:17 10/18/17 15:17 10/18/17 15:17 Oncology - Results Labs: 3 10/18/17 10/18/17 10/18/17 11:23 06:58 06:58 WBC RBC Hgb Hct MCV MCH MCHC RDW Plt Count MPV Immature Gran % Seg Neutrophils % Lymphocytes % Monocytes % Eosinophils % Basophils % Neutrophils # Lymphocytes # Monocytes # Eosinophils # Basophils # Sodium 136 Potassium 3.9 Chloride 104 Carbon Dioxide 24 BUN 14 Creatinine 0.79 Est GFR ( Amer) > 60 Est GFR (Non-Af Amer) > 60 BUN/Creatinine Ratio 18 Glucose 104 POC Glucose 123 H Est Mean Plasma Glucose 123 Hemoglobin A1c 5.9 H Calculated Osmolality 283 Calcium 9.1 Phosphorus 3.8 Magnesium 2.1 Total Bilirubin 0.5 AST 15 ALT 19 Alkaline Phosphatase 126 H Serum Total Protein 6.3 L Albumin 3.6 Globulin 2.7 Albumin/Globulin Ratio 1.3 Triglycerides 128 Cholesterol 127 LDL Cholesterol, Calc 53 VLDL Cholesterol, Calc 26 HDL Cholesterol 48 Cholesterol/HDL Ratio 2.6 3 10/18/17 10/18/17 10/17/17 06:58 05:28 17:33 WBC 9.5 RBC 4.41 Hgb 12.6 Hct 38.2 MCV 86.6 MCH 28.6 MCHC 33.0 RDW 13.4 Plt Count 274 MPV 9.6 Immature Gran % 0.6 Seg Neutrophils % 59.9 Lymphocytes % 26.8 Monocytes % 10.5 Eosinophils % 1.7 Basophils % 0.5 Neutrophils # 5.7 Lymphocytes # 2.6 Monocytes # 1.0 Eosinophils # 0.2 Basophils # 0.1 Sodium Potassium Chloride Carbon Dioxide BUN Creatinine Est GFR ( Amer) Est GFR (Non-Af Amer) BUN/Creatinine Ratio Glucose POC Glucose 109 H 105 H Est Mean Plasma Glucose Hemoglobin A1c Calculated Osmolality Calcium Phosphorus Magnesium Total Bilirubin AST ALT Alkaline Phosphatase Serum Total Protein Albumin Globulin Albumin/Globulin Ratio Triglycerides Cholesterol LDL Cholesterol, Calc VLDL Cholesterol, Calc HDL Cholesterol Cholesterol/HDL Ratio Consult Discharge Plan - Plan Referrals: Christophe Curtis DO [Primary Care Provider] -
[2017-10-18] MEDS: *HR* HYDROcodone/Acet 5/325 mg TABLET PO PRN ×2 (17:59→23:57)
[2017-10-18] MEDS: *HR* OxyCODONE ER (12 HR) 20 MG TABLET PO SCH (20:30)
--- NOTE | 2017-10-18 20:35 | Internal Med Progress Note ---
Date of Encounter: 10/18/17 Time of Encounter: 20:34 - Assessment and plan (1) Liver masses Current Visit: Yes Status: Acute (2) Calculus of gallbladder with acute cholecystitis without obstruction Current Visit: Yes Status: Acute (3) GERD (gastroesophageal reflux disease) Current Visit: Yes Status: Chronic Qualifiers: Esophagitis presence: esophagitis presence not specified Qualified Code(s) : K21.9 - Gastro-esophageal reflux disease without esophagitis (4) HTN (hypertension) Current Visit: No Status: Chronic Qualifiers: Hypertension type: essential hypertension Qualified Code(s): I10 - Essential (primary) hypertension (5) Acute hypokalemia Current Visit: Yes Status: Acute - Time Spent With Patient Total time spent is greater than 50% in coordination of care (as documented) at patient's floor/unit and/or counseling patient: 25 - 35 minutes - Subjective Interval history: .. The patient feels hungry. Her abdominal pain comes in spurts. They usually last a few minutes. They are not associated with nausea or vomiting. Most of the pain originates from her lower abdominal; with radiation to the upper quadrants. Denies chest pain. Denies difficulty breathing, coughing and wheezing. She seems to have normal urination. OBJECTIVE: .. Skin: Free of rash and discoloration ENMT: Oral/pharyngeal mucosa is normal in appearance. Eyes: Sclera is white. There is no discharge from eyes. Respiratory: Normal breath sounds; no crackles or wheezes. CV: Heart is regular; no gallop or murmur. GI: Abdomen is soft. It is mildly tender in all 4 quadrants. I cannot feel any abnormal masses or visceromegaly. Neuro: There is no focal deficits. ASSESSMENT AND PLAN: .. Liver masses. Suspected of being a metastases. See notes from oncology. We definitely need biopsy. It can be CT-guided biopsy. It can be done during cholecystectomy, if the patient is qualified for that procedure by the surgery. Multiple calculi of the gallbladder with acute cholecystitis, without obstruction. General surgery has been consulted. Interestingly, the patient's symptoms are not typical for gallbladder disease. I would treat her abdominal pain with scheduled oxycodone ERT and have when necessary sublingual Roxicodone. GERD. We will continue on omeprazole. Hypertension. Under control. We will continue lisinopril. Acute hypokalemia. Better than yesterday. Potassium is 3.9; 3.3 yesterday. I will give her potassium chloride with IV fluids. The patient is currently nothing by mouth. We may start feeding this patient had todayto be decided by the general surgery. - Constitutional Vitals: Temp Pulse Resp BP Pulse Ox 97.9 F 83 18 125/67 93 10/18/17 18:41 10/18/17 18:41 10/18/17 18:41 10/18/17 18:41 10/18/17 18:41 General appearance: Present: cooperative, mild distress (Abdominal pain), A&O X 3, pleasant, answers questions appropriately Internal Medicine: Result - Labs CBC & Chem 7: 10/18/17 06:58 10/18/17 06:58 Labs: Short CBC 10/18/17 Range/Units 06:58 WBC 9.5 (4.3-11.1) K/mcL Hgb 12.6 (11.5-15.4) g/dL Hct 38.2 (35.3-44.9) % Plt Count 274 (140-400) K/mcL Neutrophils # 5.7 (1.6-8.9) K/mcL BMP 10/18/17 06:58 Sodium 136 Potassium 3.9 Chloride 104 Carbon Dioxide 24 BUN 14 Creatinine 0.79 Glucose 104 Calcium 9.1 Liver Function 10/18/17 Range/Units 06:58 Total Bilirubin 0.5 (0.3-1.0) mg/dL AST 15 (13-39) Units/L ALT 19 (7-52) Units/L Alkaline Phosphatase 126 H (34-104) Units/L Albumin 3.6 (3.5-5.7) g/dL Consult Discharge Plan - Plan Referrals: Christophe Curtis DO [Primary Care Provider] -
[2017-10-19] MEDS: *HR* HYDROcodone/Acet 5/325 mg TABLET PO PRN ×3 (04:42→18:41)
[2017-10-19 05:46] LABS: Basophils # 0.1 K/mcL (0.0-0.2); Basophils % 0.8 %; Eosinophils # 0.3 K/mcL (0.0-0.6); Eosinophils % 3.9 %; Hematocrit 34.5 % (35.3-44.9); Hemoglobin 11.1 g/dL (11.5-15.4); Immature Granulocytes % 0.4 % (0-4); Lymphocytes # 2.5 K/mcL (0.6-4.6); Lymphocytes % 31.8 %; Mean Corpuscular HGB Conc 32.2 g/dL (31.6-35.5); Mean Corpuscular Hemoglobin 27.6 pg (28.0-33.3); Mean Corpuscular Volume 85.8 fL (83.0-100.0); Mean Platelet Volume 9.8 fL (9.4-12.4); Monocytes # 0.8 K/mcL (0.0-1.3); Monocytes % 10.6 %; Neutrophils # 4.1 K/mcL (1.6-8.9); Platelet Count 245 K/mcL (140-400); Red Blood Count 4.02 M/mcL (3.82-4.97); Red Cell Distribution Width 13.7 % (11.5-14.5); Segmented Neutrophils % 52.5 %
[2017-10-19 06:12] LABS: Alanine Aminotransferase 20 Units/L (7-52); Albumin 3.3 g/dL (3.5-5.7); Albumin/Globulin Ratio 1.4 (1.1-2.2); Alkaline Phosphatase 122 Units/L (34-104); Aspartate Amino Transferase 17 Units/L (13-39); BUN/Creatinine Ratio 23 (6-26); Bilirubin,Total 0.4 mg/dL (0.3-1.0); Blood Urea Nitrogen 15 mg/dL (8-23); Calcium 8.8 mg/dL (8.6-10.3); Carbon Dioxide 22 mEq/L (23-29); Chloride 107 mEq/L (98-107); Globulin 2.4 g/dL (2.4-3.5); Glucose 99 mg/dL (70-105); Osmolality,Calculated 283 (280-300); Potassium 4.2 mEq/L (3.5-5.1); Sodium 136 mEq/L (136-145); Total Protein 5.7 g/dL (6.4-8.9); eGFR For African Americans > 60 (> 60); eGFR For Non-African Americans > 60 (> 60)
[2017-10-19] MEDS: *HR* Heparin 5,000 UNIT/ML VIAL SQ SCH ×2 (06:17→18:41)
[2017-10-19] MEDS: ALPRAZolam 0.5 MG TABLET PO SCH (08:19)
[2017-10-19] MEDS: Aspirin Enteric Coated 81 MG Tablet PO SCH (08:19)
[2017-10-19] MEDS: *HR* OxyCODONE ER (12 HR) 20 MG TABLET PO SCH ×2 (08:19→21:33)
[2017-10-19] MEDS: (Omega-3/Dha/Epa/Fish Oil [Fish Oil 1,000 Mg Softgel]) PO SCH (08:21)
--- NOTE | 2017-10-19 09:11 | General Surgery Consult Note ---
Date of Encounter: 10/19/17 Time of Encounter: 09:11 Assessment and Plan (1) Calculus of gallbladder with acute cholecystitis without obstruction Current Visit: Yes Status: Acute CT of the abdomen and pelvis without contrast on 10/17/2017 notes gallstones filling the gallbladder lumen and associated. Cholecystic stranding, irregular wall thickening, indistinct margins, no intrahepatic or extrahepatic biliary dilation noted, moderate colonic diverticulosis without diverticulitis, hepatic metastases measuring up to 4.0 cm x 3.5 cm, peritoneal carcinomatosis Oncology following and recommended surgical consult for possible cholecystectomy and liver biopsy versus CT guided liver biopsy. I did collaborate with attending surgeon, Dr. Lopez and the recommendation from a surgical perspective is to obtain a diagnosis prior to surgical recommendations given the GB, liver, and omental findings above. we will be glad to follow with you. (2) Peritoneal carcinomatosis Current Visit: Yes Status: Acute Pt states she has never had a colonoscopy. She had a sigmoidoscopy when she was 51 years old and never went back. Her father had been pancreatic cancer. Oncology is following and recommended surgical consult for GB as above. Collaborated with surgeon as above and consulted IR (Dr. Yuen) who is in agreement to follow/complete biopsy of liver vs omentum for diagnosis. IMPRESSION: 1. Complete filling of the gallbladder lumen with gallstones. A mass arises from the posterior gallbladder wall primarily near the fundus, most likely representing adenocarcinoma. The mass abuts the gallbladder fossa, and direct invasion of the liver is not excluded. 2. Hepatic metastases measuring up to 4.0 cm x 3.5 cm. 3. Peritoneal carcinomatosis, including extensive omental caking. 4. Pericholecystic stranding could be related to superimposed acute cholecystitis. However, the appearance is felt more likely related to omental carcinomatosis. 5. Mildly enlarged portocaval lymph node, potentially metastatic. 6. Trace bilateral pleural effusions. Pleural metastatic involvement is not excluded. (3) Hepatic metastases Current Visit: Yes Status: Acute Oncology following and recommended surgical consult for possible cholecystectomy and liver biopsy versus CT guided liver biopsy. History of Present Illness Consult date: 10/18/17 (Dr. Virgil Lopez) Reason for consult: gallstones Requesting physician: Kirill Maldonado History of present illness: Ms. Varma is a 72-year-old female with a past medical history of HLP, HTN, "many strokes a few years ago,", anxiety, depression, PTSD, and a surgical history of a total abdominal hysterectomy. She has never been a smoker, and denies drug or alcohol use. She presented on 10/17/2017 with complaints of abdominal pain for the past 3 weeks that has became progressively worse. She states the discomfort started in the right upper quadrant, does radiate around to bilateral sides and back, aggravated by eating, has no alleviating factors, is a 2 out of 10 at best and increases to 9 out of 10 at times. She reports for the last week she is only been able to tolerate a few "breakfast crackers and chicken noodle soup." She denies urinary burning but states her urine has became dark. She denies changes in her bowel habits but reports typical diarrhea in the morning and then another normal bowel movement in the afternoons. She denies fever, chills, skin coloration changes, chest pain, shortness of breath, or low abdominal discomfort. Surgery has been asked to evaluate this patient for recommendations regarding right upper quadrant pain. Past Med Surg Social Fam HX - Past Medical History Source: patient Medical history: CVA ("mini strokes a couple years ago"), hyperlipidemia, hypertension Psychiatric history: anxiety, depression, PTSD - Past Surgical History Surgical History: hysterectomy, other (tonsillectomy) - Social History Smoking Status: Never smoker Smokeless Tobacco Status: No Alcohol use: none Drug use: none Occupational status: unemployed Current living situation: Home - Independent Activity Level: Independent ambulation Recent Out of Country Travel Within the Last 8 Weeks: No Exposure or Possible Exposure to Illness During Travel: No - Family History Brother Race: Family Member Ethnicity: Non- Living Status: Still Living Hx Family Cardiac Disorders: Yes (Pig valve) Father Race: Family Member Ethnicity: Non- Living Status: Age at : 60 Cause of : CVA Hx Family Cardiac Disorders: Yes (CVA) Hx Family Cancer: Yes (Pancreatic) Hx Family Neurologic Disorders: Yes (CVA) Sister Race: Family Member Ethnicity: Non- Living Status: Still Living Hx Family Cardiac Disorders: Yes (ND) Mother Race: Family Member Ethnicity: Non- Living Status: Still Living Hx Family Cardiac Disorders: Yes (Atrial fibrillation) Hx Family HEENT Disorders: Yes (Macular degeneration) Medications and Allergies ALPRAZolam [Xanax 0.5 MG Tablet] 0.5 mg PO TID 11/01/15 [History] Citalopram [CeleXA] 60 mg PO HS 11/01/15 [History] Aspirin Enteric Coated [Aspirin EC] 81 mg PO DAILY 10/17/17 [History] Lisinopril [Zestril] 10 mg PO BID 10/17/17 [History] Mansura-3/Dha/Epa/Fish Oil [Fish Oil 1,000 mg Softgel] 1 cap PO DAILY 10/17/17 [ History] Omeprazole [PriLOSEC] 20 mg PO DAILY 10/17/17 [History] 3 Allergy/AdvReac Type Severity Reaction Status Date / Time cephalexin Allergy Hives Verified 11/01/15 16:49 Penicillins Allergy Hives Verified 11/01/15 16:49 Sulfa (Sulfonamide Allergy Hives Verified 11/01/15 16:49 Antibiotics) Review of Systems All systems PM: reviewed and no additional remarkable complaints except as stated All systems PM: The remainder of the systems were reviewed and are negative General Surgery Exam Initial Vital Signs Temp Pulse Resp BP Pulse Ox 97.6 F 82 18 136/80 98 10/17/17 13:56 10/17/17 13:56 10/17/17 13:56 10/17/17 13:56 10/17/17 13:56 VITAL SIGNS: Reviewed. See [facility] GENERAL: In no apparent distress. HEENT: Normocephalic, atraumatic, pupils are equal and reactive, extraocular motions intact, oropharynx is pink and moist, there is no neck adenopathy or JVD noted. CHEST/RESPIRATORY: The thorax is free from signs of trauma. Lung sounds: clear to auscultation, normal respiratory effort CARDIAC: Regular rate and rhythm. Normal S1 and S2, without murmurs, gallops, or rubs. VASCULAR: No Edema. 2+ peripheral pulses. ABDOMEN: soft, distended, right upper quadrant and epigastric pain with palpation MUSCULOSKELETAL: Good range of motion of all major joints. Extremities without clubbing, cyanosis or edema. NEUROLOGIC EXAM: Alert and oriented x 3. Speech normal. Follows commands. PSYCHIATRIC: Mood normal. SKIN: No rash or lesions. No jaundice appreciated Exam Initial Vital Signs Temp Pulse Resp BP Pulse Ox 97.6 F 82 18 136/80 98 10/17/17 13:56 10/17/17 13:56 10/17/17 13:56 10/17/17 13:56 10/17/17 13:56 Results - Labs 10/19/17 05:20 10/19/17 05:20 Abnormal lab results Hgb 11.1 g/dL (11.5-15.4) L D 10/19/17 05:20 Hct 34.5 % (35.3-44.9) L 10/19/17 05:20 MCH 27.6 pg (28.0-33.3) L 10/19/17 05:20 Carbon Dioxide 22 mEq/L (23-29) L 10/19/17 05:20 POC Glucose 123 mg/dL (70-99) H 10/18/17 11:23 Hemoglobin A1c 5.9 % (-5.6) H 10/18/17 06:58 Alkaline Phosphatase 122 Units/L (34-104) H 10/19/17 05:20 Serum Total Protein 5.7 g/dL (6.4-8.9) L 10/19/17 05:20 Albumin 3.3 g/dL (3.5-5.7) L 10/19/17 05:20 Diabetes panel 10/18/17 10/19/17 Range/Units 06:58 05:20 Sodium 136 (136-145) mEq/L Potassium 4.2 (3.5-5.1) mEq/L Chloride 107 (98-107) mEq/L Carbon Dioxide 22 L (23-29) mEq/L BUN 15 (8-23) mg/dL Creatinine 0.66 (0.60-1.20) mg/dL Glucose 99 (70-105) mg/dL Hemoglobin A1c 5.9 H ( - 5.6) % Calcium 8.8 (8.6-10.3) mg/dL AST 17 (13-39) Units/L ALT 20 (7-52) Units/L Alkaline Phosphatase 122 H (34-104) Units/L Albumin 3.3 L (3.5-5.7) g/dL Calcium panel 10/19/17 Range/Units 05:20 Calcium 8.8 (8.6-10.3) mg/dL Albumin 3.3 L (3.5-5.7) g/dL Pituitary panel 10/19/17 Range/Units 05:20 Sodium 136 (136-145) mEq/L Potassium 4.2 (3.5-5.1) mEq/L Chloride 107 (98-107) mEq/L Carbon Dioxide 22 L (23-29) mEq/L BUN 15 (8-23) mg/dL Creatinine 0.66 (0.60-1.20) mg/dL Glucose 99 (70-105) mg/dL Calcium 8.8 (8.6-10.3) mg/dL Adrenal panel 10/19/17 Range/Units 05:20 Sodium 136 (136-145) mEq/L Potassium 4.2 (3.5-5.1) mEq/L Chloride 107 (98-107) mEq/L Carbon Dioxide 22 L (23-29) mEq/L BUN 15 (8-23) mg/dL Creatinine 0.66 (0.60-1.20) mg/dL Glucose 99 (70-105) mg/dL Calcium 8.8 (8.6-10.3) mg/dL Total Bilirubin 0.4 (0.3-1.0) mg/dL AST 17 (13-39) Units/L ALT 20 (7-52) Units/L Alkaline Phosphatase 122 H (34-104) Units/L Albumin 3.3 L (3.5-5.7) g/dL All other labs normal. - Imaging CT scan - abdomen: report reviewed CT scan - pelvis: report reviewed Consult Discharge Plan - Plan Referrals: Christophe Curtis DO [Primary Care Provider] -
[2017-10-19 11:23] LABS: INR 1.2
--- NOTE | 2017-10-19 12:36 | IR Procedure Note ---
Date of procedure: 10/19/17 Consent Obtained: Written consent Timeout: Correct patient and procedure verified, Correct site verified, Time out performed, Skin prep completed Indications: metastatic gallbladder cancer Procedure Performed: omental biopsy Was there an claims assistant present: No Site/Technique: left omentum, 18G gun, 4 cores Results/Findings: positive for cancer cells Estimated blood loss (cc): 0 Complications: None; Tolerated procedure well Post Procedure Treatment Plan: dc to floor Specimen: 4 omental cores
[2017-10-19] MEDS: *HR* OxyCODONE Immed Rel 5 MG TABLET PO PRN (15:13)
[2017-10-19] MEDS: 0.9 % Sodium Chloride w KCl 20 MEQ/1,000 ML MLS IVC SCH (15:14)
--- NOTE | 2017-10-19 18:02 | Internal Med Progress Note ---
Date of Encounter: 10/19/17 Time of Encounter: 18:01 - Assessment and plan (1) Liver masses Current Visit: Yes Status: Acute (2) Calculus of gallbladder with acute cholecystitis without obstruction Current Visit: Yes Status: Acute (3) GERD (gastroesophageal reflux disease) Current Visit: Yes Status: Chronic Qualifiers: Esophagitis presence: esophagitis presence not specified Qualified Code(s) : K21.9 - Gastro-esophageal reflux disease without esophagitis (4) HTN (hypertension) Current Visit: No Status: Chronic Qualifiers: Hypertension type: essential hypertension Qualified Code(s): I10 - Essential (primary) hypertension (5) Acute hypokalemia Current Visit: Yes Status: Resolved - Time Spent With Patient Total time spent is greater than 50% in coordination of care (as documented) at patient's floor/unit and/or counseling patient: 25 - 35 minutes - Subjective Interval history: .. The patient had abdominal biopsy today. It was done by interventional radiology. Her abdominal pain is under control. Denies nausea and vomiting. She has pretty good appetite. She has normal urination. Denies chest pain. Denies difficulty breathing. OBJECTIVE: .. Skin: Free of rash and discoloration ENMT: Oral/pharyngeal mucosa is normal in appearance. Eyes: Sclera is white. There is no discharge from eyes. Respiratory: Normal breath sounds; no crackles or wheezes. CV: Heart is regular; no gallop or murmur. GI: Abdomen is soft. It is mildly tender in all 4 quadrants. I cannot feel any abnormal masses or visceromegaly. Neuro: There is no focal deficits. ASSESSMENT AND PLAN: .. Liver masses. Suspected of being metastases. See notes from oncology and surgery. Abdominal biopsy has been done. Results are pending. Multiple calculi of the gallbladder with acute cholecystitis, without obstruction. General surgery has been consulted. Interestingly, the patient's symptoms are not typical for gallbladder disease. Her abdominal pain is under control. Will continue scheduled oxycodone ERT and when necessary Roxicodone. GERD. We will continue on omeprazole. Hypertension. Under control. We will continue lisinopril. Acute hypokalemia. Basically resolved. Her potassium today is 4.2; was 3.9 yesterday. We will continue oral potassium chloride. Disposition. She will likely be discharged home tomorrow. - Constitutional Vitals: Temp Pulse Resp BP Pulse Ox 97.6 F 88 16 130/71 93 10/19/17 14:14 10/19/17 14:14 10/19/17 14:14 10/19/17 14:14 10/19/17 14:14 General appearance: Present: cooperative, mild distress (Abdominal pain), A&O X 3, pleasant, answers questions appropriately Internal Medicine: Result - Labs CBC & Chem 7: 10/19/17 05:20 10/19/17 05:20 Labs: Short CBC 10/19/17 Range/Units 05:20 WBC 7.9 (4.3-11.1) K/mcL Hgb 11.1 L D (11.5-15.4) g/dL Hct 34.5 L (35.3-44.9) % Plt Count 245 (140-400) K/mcL Neutrophils # 4.1 (1.6-8.9) K/mcL BMP 10/19/17 05:20 Sodium 136 Potassium 4.2 Chloride 107 Carbon Dioxide 22 L BUN 15 Creatinine 0.66 Glucose 99 Calcium 8.8 Liver Function 10/19/17 Range/Units 05:20 Total Bilirubin 0.4 (0.3-1.0) mg/dL AST 17 (13-39) Units/L ALT 20 (7-52) Units/L Alkaline Phosphatase 122 H (34-104) Units/L Albumin 3.3 L (3.5-5.7) g/dL - ABG Interpretation ABG results: PT/INR, D-dimer PT 13.0 Seconds (9.4-12.1) H 10/19/17 10:47 - Impressions Impressions Abdomen Biopsy CT 10/19/17 00:00 IMPRESSION: Successful CT guided core biopsy of the abdominal omentum. D/ / 10/19/2017 14:05:51 Sary Yuen MD / [facility] Interpreting Provider: Sary Yuen MD Consult Discharge Plan - Plan Referrals: Christophe Curtis DO [Primary Care Provider] -
[2017-10-19] MEDS: ALPRAZolam 0.5 MG TABLET PO PRN (21:33)
[2017-10-20] MEDS: *HR* HYDROcodone/Acet 5/325 mg TABLET PO PRN ×2 (03:25→13:05)
[2017-10-20] MEDS ORDERED: methylPREDNISolone 125 MG/2 ML VIAL IVP ONE (04:37)
[2017-10-20] MEDS ORDERED: Famotidine 20 MG/2 ML VIAL IVP ONE (04:44)
--- NOTE | 2017-10-20 04:52 | Event Note ---
Date of Encounter: 10/20/17 Time of Encounter: 04:00 Report by RN patient has tongue swelling. See patient at the bedside. Patient said she has similar problem about 10 days ago, which is improved after Benadryl use. Patient has left-sided tongue thickness. Patient has uncleared speech because of tongue swelling. Patient denies difficulty breathing or difficulty swallowing or drooling. Consider angioedema. Check her medication list, patient is taking lisinopril. Will hold lisinopril. Give patient Solu-Medrol 125 mg, Benadryl 25 mg, famotidine 20 mg IV once. Transfer patient to ICU for close monitoring. Add CHERYL inhibitor to her allergy list.
[2017-10-20] MEDS: 0.9 % Sodium Chloride w KCl 20 MEQ/1,000 ML MLS IVC SCH (05:34)
[2017-10-20] MEDS: *HR* Heparin 5,000 UNIT/ML VIAL SQ SCH ×2 (05:35→17:00)
[2017-10-20 06:08] LABS: Basophils # 0.1 K/mcL (0.0-0.2); Basophils % 0.7 %; Eosinophils # 0.2 K/mcL (0.0-0.6); Eosinophils % 2.8 %; Hematocrit 36.8 % (35.3-44.9); Hemoglobin 12.2 g/dL (11.5-15.4); Immature Granulocytes % 0.4 % (0-4); Lymphocytes # 1.8 K/mcL (0.6-4.6); Lymphocytes % 23.6 %; Mean Corpuscular HGB Conc 33.2 g/dL (31.6-35.5); Mean Corpuscular Hemoglobin 28.7 pg (28.0-33.3); Mean Corpuscular Volume 86.6 fL (83.0-100.0); Mean Platelet Volume 9.9 fL (9.4-12.4); Monocytes # 0.7 K/mcL (0.0-1.3); Monocytes % 9.7 %; Neutrophils # 4.8 K/mcL (1.6-8.9); Platelet Count 250 K/mcL (140-400); Red Blood Count 4.25 M/mcL (3.82-4.97); Red Cell Distribution Width 13.5 % (11.5-14.5); Segmented Neutrophils % 62.8 %
[2017-10-20 06:14] LABS: Alanine Aminotransferase 27 Units/L (7-52); Albumin 3.2 g/dL (3.5-5.7); Albumin/Globulin Ratio 1.3 (1.1-2.2); Alkaline Phosphatase 159 Units/L (34-104); Aspartate Amino Transferase 24 Units/L (13-39); BUN/Creatinine Ratio 17 (6-26); Bilirubin,Total 0.5 mg/dL (0.3-1.0); Blood Urea Nitrogen 11 mg/dL (8-23); Carbon Dioxide 23 mEq/L (23-29); Chloride 104 mEq/L (98-107); Globulin 2.4 g/dL (2.4-3.5); Glucose 101 mg/dL (70-105); Osmolality,Calculated 278 (280-300); Potassium 4.3 mEq/L (3.5-5.1); Sodium 134 mEq/L (136-145); Total Protein 5.6 g/dL (6.4-8.9); eGFR For African Americans > 60 (> 60); eGFR For Non-African Americans > 60 (> 60)
[2017-10-20] MEDS ORDERED: Furosemide 20 MG/2 ML VIAL IVP ONE (07:57)
[2017-10-20] MEDS: ALPRAZolam 0.5 MG TABLET PO PRN (08:41)
[2017-10-20] MEDS: Aspirin Enteric Coated 81 MG Tablet PO SCH (08:41)
[2017-10-20] MEDS: *HR* OxyCODONE ER (12 HR) 20 MG TABLET PO SCH ×2 (08:52→21:01)
[2017-10-20] MEDS ORDERED: ALPRAZolam 0.5 MG TABLET PO PRN (13:10)
[2017-10-20] MEDS ORDERED: Acetaminophen 325 MG TABLET PO PRN (13:10)
[2017-10-20] MEDS ORDERED: *HR* OxyCODONE Immed Rel 5 MG TABLET PO PRN (13:10)
[2017-10-20] MEDS ORDERED: Naloxone 0.4 MG/ML INJ IVP PRN (13:10)
[2017-10-20] MEDS ORDERED: tiZANidine 4 MG TABLET PO PRN (13:10)
[2017-10-20] MEDS ORDERED: 0.9 % Sodium Chloride w KCl 20 MEQ/1,000 ML MLS IVC SCH (13:10)
[2017-10-20] MEDS ORDERED: *HR* HYDROcodone/Acet 5/325 mg TABLET PO PRN (13:10)
[2017-10-20] MEDS ORDERED: *HR* Promethazine 25 MG/ML VIAL IVP PRN (13:10)
[2017-10-20] MEDS ORDERED: Isovue-370 500 ML INFUS..BTL IV ONE (14:52)
--- NOTE | 2017-10-20 15:06 | Event Note ---
Date of Encounter: 10/20/17 Time of Encounter: 14:55 Final pathology per omentum biopsies remain pending. Noted "cancer cells present ," per IR report and verified with histopathology technician- pathologist present and noted moderate atypical cells present concerning for malignancy. Oncology recommended a CT of the chest with IV contrast if surgery did not recommended any surgical intervention. I did go ahead and place the order for this CT per oncology recommendations. At this time, it appears the patient has metastatic disease (peritoneal carcinomatosis noted), and no indication for acute surgical intervention. Pending CT of chest with IV contrast for staging and final pathology results, a hospice/palliative care consult may be in the best interest for the patient. Surgery will sign off at this time. Thank you for allowing us to participate in Ms. Varma's care. Please reconsult if questions or needs arise.
--- NOTE | 2017-10-20 16:29 | Oncology Inp Progress Note ---
<Donna Edwards L - Last Filed: 10/20/17 16:27> Date of Encounter: 10/20/17 Time of Encounter: 13:25 (1) Liver mass Current Visit: Yes Status: Acute Assessment and plan: S/P CT abdomen/pelvis which reveals mass to posterior gallbladder, multiple hepatic metastasis, Peritoneal carcinomatosis, including extensive omental caking, Mildly enlarged portocaval lymph node, Trace bilateral pleural effusions. Appreciate evaluation by surgery-recommended biopsy prior to surgical intervention. S/P omental biopsy on 10/19/17 CT chest ordered to complete staging. She has a f/u arranged with Dr. Llanos to discuss pathology results next week along with discussion on prognosis and treatment options. Plan as above discussed with patient at bedside. Please refer to Dr. Valencia's note below for additional details. Oncology: Subj Interval history: Ms. Varma is resting in bed. She reports abdominal pain s/p biopsy. She was transferred to ICU overnight for concern of angioedema which was treated supportively and she is currently in stable condition. She denies nausea of vomiting. - Constitutional Vitals: Vital Signs Temp Pulse Resp BP Pulse Ox 10/20/17 15:51 97.7 F 87 15 138/79 92 10/20/17 12:18 98.0 F 10/20/17 10:14 71 12 140/71 89 10/20/17 09:00 70 12 141/74 89 10/20/17 08:45 73 12 148/73 91 10/20/17 08:16 98.4 F 10/20/17 06:00 68 14 138/71 91 10/20/17 05:20 98.7 F 70 16 144/82 90 10/20/17 04:17 98.3 F 75 15 128/71 92 10/19/17 20:19 98.9 F 76 15 123/73 93 Intake and Output 10/20/17 10/20/17 10/20/17 07:59 15:59 23:59 Intake Total 1000 / 1000 Output Total 850 / 850 Balance 1000 / 1000 -850 / -850 Intake: IV Fluids 1000 / 1000 KCl 20 mEq in 0.9% Sodium 1000 / 1000 Chloride 20 meq In 1,000 ml @ 75 mls/hr IVC .[id number] MALIK Rx#: [id number] Oral 0 / 0 Output: Urine 850 / 850 Other: # Voids 1 1 # Urine Diapers 1 Weight 76.7 kg Blood Glucose* 102 Patient Weight 10/20/17 23:59 Weight 76.7 kg General appearance: cooperative, no acute distress, no febrile - Head Head exam: Present: atraumatic - ENT ENT exam: Present: mucous membranes moist - Respiratory Respiratory exam: Present: decreased breath sounds, CTAB. Absent: respiratory distress - Cardiovascular Cardiovascular exam: Present: RRR, +S1, +S2 - GI/Abdominal GI/Abdominal exam: Present: normal bowel sounds, soft, tenderness Additional comments: RUQ tenderness - Extremities Exam Extremities exam: Present: pedal edema - Neurological Exam Neurological exam: Present: alert, oriented X3, no focal deficits, strengths equal and symetr throughout - Psychiatric Psychiatric exam: Present: normal affect, normal mood - Skin Skin exam: Present: dry, intact, normal color, warm Oncology: Obj Data - Labs CBC & Chem 7: 10/20/17 05:44 10/20/17 05:44 - ABG Interpretation ABG results: PT/INR, D-dimer PT 13.0 Seconds (9.4-12.1) H 10/19/17 10:47 Consult Discharge Plan - Plan Referrals: Skyler Llanos MD [Partnered Physician] - 10/26/17 8:30 am Christophe Curtis DO [Primary Care Provider] - <Ebony Camacho - Last Filed: 10/20/17 17:45> Date of Encounter: 10/20/17 (1) Hepatic metastases Current Visit: Yes Status: Acute Assessment and plan: I will await final biopsy results, please refer to Donna Xie's assessment and plan for further details. Possible diagnosis of metastatic disease and systemic therapy discussed briefly with the patient. She will follow-up as an outpatient with Dr. Llanos. She has abdominal pain which is being managed by primary team. I examined this patient and my medical decision-making was reviewed with the Advanced Practice Nurse, Donna Edwards. I agree with the documented findings, disposition and treatment plan as described except to the extent set forth below. - Constitutional Vitals: Vital Signs Temp Pulse Resp BP Pulse Ox 10/20/17 15:51 97.7 F 87 15 138/79 92 10/20/17 12:18 98.0 F 10/20/17 10:14 71 12 140/71 89 10/20/17 09:00 70 12 141/74 89 10/20/17 08:45 73 12 148/73 91 10/20/17 08:16 98.4 F 10/20/17 06:00 68 14 138/71 91 10/20/17 05:20 98.7 F 70 16 144/82 90 10/20/17 04:17 98.3 F 75 15 128/71 92 10/19/17 20:19 98.9 F 76 15 123/73 93 Intake and Output 10/20/17 10/20/17 10/20/17 07:59 15:59 23:59 Intake Total 1000 / 1000 Output Total 850 / 850 Balance 1000 / 1000 -850 / -850 Intake: IV Fluids 1000 / 1000 KCl 20 mEq in 0.9% Sodium 1000 / 1000 Chloride 20 meq In 1,000 ml @ 75 mls/hr IVC .[id number] MALIK Rx#: [id number] Oral 0 / 0 Output: Urine 850 / 850 Other: # Voids 1 1 # Urine Diapers 1 Weight 76.7 kg Blood Glucose* 102 Patient Weight 10/20/17 23:59 Weight 76.7 kg Oncology: Obj Data - Labs CBC & Chem 7: 10/20/17 05:44 10/20/17 05:44 Labs: Laboratory Results - last 24 hr 10/20/17 10/20/17 10/20/17 05:23 05:44 05:44 WBC 7.6 RBC 4.25 Hgb 12.2 Hct 36.8 MCV 86.6 MCH 28.7 MCHC 33.2 RDW 13.5 Plt Count 250 MPV 9.9 Immature Gran % 0.4 Seg Neutrophils % 62.8 Lymphocytes % 23.6 Monocytes % 9.7 Eosinophils % 2.8 Basophils % 0.7 Neutrophils # 4.8 Lymphocytes # 1.8 Monocytes # 0.7 Eosinophils # 0.2 Basophils # 0.1 Sodium 134 L Potassium 4.3 Chloride 104 Carbon Dioxide 23 BUN 11 Creatinine 0.63 Est GFR ( Amer) > 60 Est GFR (Non-Af Amer) > 60 BUN/Creatinine Ratio 17 Glucose 101 POC Glucose 102 H Calculated Osmolality 278 L Calcium 9.0 Total Bilirubin 0.5 AST 24 ALT 27 Alkaline Phosphatase 159 H Serum Total Protein 5.6 L Albumin 3.2 L Globulin 2.4 Albumin/Globulin Ratio 1.3 - Impressions Impressions Chest CT 10/20/17 14:52 IMPRESSION: Small bilateral pleural effusions, right greater than left. Hepatic metastatic disease. Gallstones and gallbladder mass. D/ / Luis Giang MD / Luis Giang MD Interpreting Provider: Luis Giang MD - ABG Interpretation ABG results: PT/INR, D-dimer PT 13.0 Seconds (9.4-12.1) H 10/19/17 10:47
[2017-10-21] MEDS: *HR* Heparin 5,000 UNIT/ML VIAL SQ SCH (05:07)
[2017-10-21] MEDS: *HR* OxyCODONE ER (12 HR) 20 MG TABLET PO SCH (08:09)
[2017-10-21 08:37] VITALS: BP 160/81
[2017-10-21] MEDS ORDERED: Aspirin Enteric Coated 81 MG Tablet PO SCH (09:00)
--- NOTE | 2017-10-21 09:07 | Oncology Inp Progress Note ---
Date of Encounter: 10/21/17 Time of Encounter: 08:00 (1) Hepatic metastases Current Visit: Yes Status: Acute Assessment and plan: Peritoneal metastatic disease, status post biopsy possible GI malignancy, patient will follow up in a wk or so with Dr Llanos outpatient for results. Pain is better controlled. She denies any acute symptoms. LAbs normal Patient is agreeable to follow up plan as above Oncology: Subj Interval history: Pain is better controlled this a.m. She denies any nausea. - Constitutional Vitals: Vital Signs Temp Pulse Resp BP Pulse Ox 10/21/17 08:35 97.8 F 74 20 160/81 98 10/21/17 02:57 98.2 F 75 16 135/72 94 10/20/17 19:24 98.2 F 94 16 127/73 94 10/20/17 15:51 97.7 F 87 15 138/79 92 10/20/17 12:18 98.0 F 10/20/17 10:14 71 12 140/71 89 Intake and Output 10/20/17 10/21/17 10/21/17 23:59 07:59 15:59 Intake Total 30 / 30 200 / 200 Output Total 0 / 0 Balance 30 / 30 200 / 200 Intake: Oral 30 / 30 200 / 200 Output: Urine 0 / 0 Other: # Voids 1 Weight 77.3 kg Patient Weight 10/21/17 23:59 Weight 77.3 kg General appearance: no acute distress - Head Head exam: Present: atraumatic, normal inspection - Eye Eye exam: Present: sclera anicteric - Respiratory Respiratory exam: Present: CTAB - Cardiovascular Cardiovascular exam: Present: +S1, +S2 - GI/Abdominal GI/Abdominal exam: Present: soft Additional comments: non tender - Extremities Exam Extremities exam: Present: normal inspection Oncology: Obj Data - Labs CBC & Chem 7: 10/20/17 05:44 10/20/17 05:44 - Impressions Impressions Chest CT 10/20/17 14:52 IMPRESSION: Small bilateral pleural effusions, right greater than left. Hepatic metastatic disease. Gallstones and gallbladder mass. D/ / Luis Giang MD / Luis Giang MD Interpreting Provider: Luis Giang MD - ABG Interpretation ABG results: PT/INR, D-dimer PT 13.0 Seconds (9.4-12.1) H 10/19/17 10:47 Consult Discharge Plan - Plan Referrals: Skyler Llanos MD [Partnered Physician] - 10/26/17 8:30 am Christophe Curtis DO [Primary Care Provider] -
--- NOTE | 2017-10-21 09:52 | Internal Med Progress Note ---
Date of Encounter: 10/20/17 Time of Encounter: 19:00 - Assessment and plan (1) Liver masses Status: Acute (2) Calculus of gallbladder with acute cholecystitis without obstruction Status: Acute (3) Angioedema Status: Resolved Qualifiers: Encounter type: initial encounter Qualified Code(s): T78.3XXA - Angioneurotic edema, initial encounter (4) GERD (gastroesophageal reflux disease) Status: Chronic Qualifiers: Esophagitis presence: esophagitis presence not specified Qualified Code(s) : K21.9 - Gastro-esophageal reflux disease without esophagitis (5) HTN (hypertension) Status: Chronic Qualifiers: Hypertension type: essential hypertension Qualified Code(s): I10 - Essential (primary) hypertension - Time Spent With Patient Total time spent is greater than 50% in coordination of care (as documented) at patient's floor/unit and/or counseling patient: 25 - 35 minutes - Subjective Interval history: .. The patient had abdominal biopsy yesterday. It was in the late evening when she developed swelling of her tongue. It was associated with some difficulty breathing. Angioedema was suspected. The patient was moved to ICU. She received emergency treatment with IV steroid, IV H2 jasson and IV Benadryl. She is better today. Swelling of her tongue/difficulty breathing subsided. She does not have any substantial abdominal pain. Denies nausea and vomiting. She is being advanced with her diet. She has normal urination. OBJECTIVE: .. Skin: Free of rash and discoloration ENMT: Oral/pharyngeal mucosa is normal in appearance. Eyes: Sclera is white. There is no discharge from eyes. Respiratory: Normal breath sounds; no crackles or wheezes. CV: Heart is regular; no gallop or murmur. GI: Abdomen is soft. It is mildly tender in all 4 quadrants. I cannot feel any abnormal masses or visceromegaly. Neuro: There is no focal deficits. ASSESSMENT AND PLAN: .. Liver masses. Suspected of being metastases. See notes from oncology and surgery. Abdominal biopsy has been done. Results are pending. Angioedema. Likely secondary to lisinopril. She got emergency treatment (see above). We decided to stop lisinopril. It would be substituted by some other antihypertensive. Multiple calculi of the gallbladder with acute cholecystitis, without obstruction. General surgery has been consulted. Interestingly, the patient's symptoms are not typical for gallbladder disease. Her abdominal pain is under control. Will continue scheduled oxycodone ERT and when necessary Roxicodone. GERD. We will continue on omeprazole. Hypertension. Under control. Will stop lisinopril. Will start Norvasc, if needed. Acute hypokalemia. Basically resolved. Her potassium today is 4.2; was 3.9 yesterday. We will continue oral potassium chloride. Disposition. She will likely be discharged home tomorrow. - Constitutional Vitals: Temp Pulse Resp BP Pulse Ox 97.8 F 74 20 160/81 98 10/21/17 08:35 10/21/17 08:35 10/21/17 08:35 10/21/17 08:35 10/21/17 08:35 General appearance: Present: cooperative, mild distress (Abdominal pain), A&O X 3, pleasant, answers questions appropriately Internal Medicine: Result - Labs CBC & Chem 7: 10/20/17 05:44 10/20/17 05:44 - ABG Interpretation ABG results: PT/INR, D-dimer PT 13.0 Seconds (9.4-12.1) H 10/19/17 10:47 - Impressions Impressions Chest CT 10/20/17 14:52 IMPRESSION: Small bilateral pleural effusions, right greater than left. Hepatic metastatic disease. Gallstones and gallbladder mass. D/ / Luis Giang MD / Luis Giang MD Interpreting Provider: Luis Giang MD Consult Discharge Plan - Plan Instructions: Hydrocodone/Acetaminophen (By mouth), Oxycodone/Acetaminophen ( By mouth) Additional Instructions: Follow-up with pathology in about 1 week. Referrals: Skyler Llanos MD [Partnered Physician] - 10/26/17 8:30 am Christophe Curtis DO [Primary Care Provider] - Prescriptions: HYDROcodone/Acet 5/325 mg [[place] 5-325 mg] 1 tab PO Q4HR PRN 5 Days #20 tablet PRN Reason: Moderate Pain OxyCODONE ER (12 HR) [OxyCONTIN] 20 mg PO BID 15 Days #30 tab.er.12h
--- NOTE | 2017-10-21 10:02 | Discharge Summary ---
Orders not resulted at time of discharge: Pending orders 10/17/17 18:51 ECG 12 lead ECG [ECG] Routine Date of Encounter: 10/21/17 Time of Encounter: 09:54 - Discharge Diagnosis (1) Liver masses Priority: Primary Status: Acute (2) Calculus of gallbladder with acute cholecystitis without obstruction Priority: Primary Status: Acute (3) Angioedema Priority: Secondary Status: Resolved Qualifiers: Encounter type: initial encounter Qualified Code(s): T78.3XXA - Angioneurotic edema, initial encounter (4) GERD (gastroesophageal reflux disease) Priority: Secondary Status: Chronic Qualifiers: Esophagitis presence: esophagitis presence not specified Qualified Code(s) : K21.9 - Gastro-esophageal reflux disease without esophagitis (5) HTN (hypertension) Priority: Secondary Status: Chronic Qualifiers: Hypertension type: essential hypertension Qualified Code(s): I10 - Essential (primary) hypertension Hospital course: Ms. Varma is a 72 year old female. The patient was treated to the hospital with diffuse abdominal pain of about 3 weeks duration; with worsening in the last several days preceding this admission. The pain was colicky in natureusually happening every few hoursusually lasting for a few minutes; occasionally longer. Not associated with nausea or vomiting. Not interfering with her appetite at all. CT of abdomen and pelvis was done at admission. It showed the multiple liver masses. It showed calculus cholecystitis without biliary obstruction. This patient was initially on nothing by mouth diet and IV fluids. Oncology and general surgery were consulted. We decided to proceed with omental biopsy. We did not know the results of the biopsy at the time of discharge. It was on the day preceding her discharge when she developed a acute swelling of her tongue; interfering with her breathing. With suspected angioedema secondary to lisinopril. We stopped lisinopril. She got emergency treatment with IV steroids, IV H2 jasson and IV Benadryl. She had a short stay in ICU. On the day of discharge: The patient feels good. Denies abdominal pain, nausea and vomiting. Denies chest pain. Denies difficulty breathing, coughing and wheezing. She has normal urination. We discharge this patient home. She will get outpatient treatment by PCP/ oncology. Discharge discussed with: patient, family, nurse, case management - Time Spent with Patient Total time spent providing and/or coordinating discharge services: Greater than 30 minutes (40 minutes.) - Discharge Medications Prescriptions: HYDROcodone/Acet 5/325 mg [[place] 5-325 mg] 1 tab PO Q4HR PRN 5 Days #20 tablet PRN Reason: Moderate Pain OxyCODONE ER (12 HR) [OxyCONTIN] 20 mg PO BID 15 Days #30 tab.er.12h Home Medications: ALPRAZolam [Xanax 0.5 MG Tablet] 0.5 mg PO TID 11/01/15 [History] Citalopram [CeleXA] 60 mg PO HS 11/01/15 [History] Aspirin Enteric Coated [Aspirin EC] 81 mg PO DAILY 10/17/17 [History] [place]-3/Dha/Epa/Fish Oil [Fish Oil 1,000 mg Softgel] 1 cap PO DAILY 10/17/17 [ History] Omeprazole [PriLOSEC] 20 mg PO DAILY 10/17/17 [History] Acetaminophen [Tylenol] 650 mg PO Q6HR PRN tablet 10/21/17 [Rx] HYDROcodone/Acet 5/325 mg [[place] 5-325 mg] 1 tab PO Q4HR PRN 5 Days #20 tablet 10/21/17 [Rx] OxyCODONE ER (12 HR) [OxyCONTIN] 20 mg PO BID 15 Days #30 tab.er.12h 10/21/17 [ Rx] Allergies/Adverse Reactions: 3 Allergy/AdvReac Type Severity Reaction Status Date / Time cephalexin Allergy Hives Verified 11/01/15 16:49 Penicillins Allergy Hives Verified 11/01/15 16:49 Sulfa (Sulfonamide Allergy Hives Verified 11/01/15 16:49 Antibiotics) CHERYL Inhibitors AdvReac Swelling Verified 10/20/17 04:48 of Lip/Tongue/Throat Date of admission: 10/17/17 16:04 Primary care physician: Maura Morales Consults: 10/17/17 17:28 Consult to Pastoral Services [CONS] Routine Comment: 10/17/17 18:26 Consult to Learning Disabilities Resource Teacher [CONS] Routine Reason for SW Consult: Please assess patient for possible home needs for post -discharge planning. 10/18/17 16:48 Consult to Surgery [CONS] Routine Consulting Provider: [facility] Reason for Consult: Calculous cholecystitis. Multiple liver lesions. Surgery versus bx of liver. Call Completed: Yes 10/19/17 10:15 Consult to Interventional Radiology [CONS] Stat Consulting Provider: Radiology Interventional Cols Reason for Consult: Tissue diagnosis; liver metastases vs omental biopsy Time Notified: 10:16 Call Completed: Yes Discharging clinician: Kirill Maldonado Anticipated date of discharge: 10/21/17 - Constitutional Vitals: Temp Pulse Resp BP Pulse Ox 97.8 F 74 20 160/81 98 10/21/17 08:35 10/21/17 08:35 10/21/17 08:35 10/21/17 08:35 10/21/17 08:35 General appearance: Present: cooperative, A&O X 3, pleasant, answers questions appropriately - Respiratory Respiratory exam: Present: CTAB. Absent: accessory muscle use, rales, rhonchi, wheezes - Cardiovascular Cardiovascular exam: Present: RRR, +S1, +S2. Absent: diastolic murmur, gallop, rubs, systolic murmur - GI/Abdominal GI/Abdominal exam: Present: normal bowel sounds, soft, no peritoneal signs. Absent: distended, tenderness - Patient Status Disposition: Home, Self-Care Condition: Fair Functional capacity at discharge: independent ambulation Overall status at discharge: patient is back to baseline - Discharge Instructions Instructions: Hydrocodone/Acetaminophen (By mouth), Oxycodone/Acetaminophen ( By mouth) Follow Up With: Skyler Llanos MD [Partnered Physician] - 10/26/17 8:30 am Christophe Curtis DO [Primary Care Provider] - Additional Instructions: Follow-up with pathology in about 1 week. - Diet and Activity Activity: resume usual activities as tolerated - VTE Deep Vein Thrombosis/Pulmonary Embolism Present on Admission: No
--- NOTE | 2017-10-27 16:43 | Oncology Inp Progress Note ---
Date of Encounter: 10/19/17 Time of Encounter: 12:00 (1) Hepatic metastases Status: Acute Assessment and plan: Peritoneal metastatic disease, status post biopsy malignant cells, preliminary, will await final pathology and discuss with patient at later date. Pain medications per regular medical team. F/U on final pathology Oncology: Subj Interval history: Patient was seen in the ICU after biopsy procedure. She was complaining of some abdominal discomfort, received pain medication a few minutes ago. - Constitutional General appearance: mild distress - Head Head exam: Present: atraumatic, normal inspection - Eye Eye exam: Present: sclera anicteric - ENT ENT exam: Present: mucous membranes dry - Respiratory Respiratory exam: Present: CTAB - Cardiovascular Cardiovascular exam: Present: +S1, +S2 - GI/Abdominal GI/Abdominal exam: Present: normal bowel sounds, soft - Neurological Exam Neurological exam: Present: alert, CN II-XII intact, oriented X3 - Psychiatric Psychiatric exam: Present: normal mood Oncology: Obj Data - Labs CBC & Chem 7: 10/20/17 05:44 10/20/17 05:44 - ABG Interpretation ABG results: PT/INR, D-dimer PT 13.0 Seconds (9.4-12.1) H 10/19/17 10:47 Consult Discharge Plan - Plan Instructions: Hydrocodone/Acetaminophen (By mouth), Oxycodone/Acetaminophen ( By mouth) Additional Instructions: Follow-up with pathology in about 1 week. Referrals: Skyler Llanos MD [Partnered Physician] - 10/26/17 8:30 am Christophe Curtis DO [Primary Care Provider] -
== END 2017-10-21 11:39 | disposition home or self-care (01) ==
LOC: EMEROO 13:45 → 3ANU 13:45 → SUATTDRO 16:04 → 3ANU 16:48 → ICNU 10-20 05:28 → 3ANU 10-20 15:50
PROVIDERS: ADMIT Student in an Organized Health Care Education/Training Program; ATTEND Internal Medicine
PROC: IRLIVER (2017-10-19 13:15)